=== PATIENT | female | born 1955 | race Hispanic/Latino ===

== ENCOUNTER 2017-04-12 09:15 | Outpatient (CLI) | payer OTHER ==
--- NOTE | 2017-04-12 11:22 | XRay Report ---
RIGHT FOOT, 3 views: History: Right foot pain There is normal bone mineralization. Deformity of the proximal phalanx of the right fifth toe is identified consistent with acute fracture. There is intra-articular extension at the fifth metatarsophalangeal joint. The remaining bony structures and joint spaces are within normal limits. IMPRESSION: Traumatic fracture, proximal phalanx, fifth toe.
--- NOTE | 2017-04-12 13:15 | Mammography Report ---
BONE DENSITY STUDY: Postmenopausal osteoporosis. DEFINITIONS: BMD = Bone Mineral Density T-score = BMD related to mean peak bone mass of young adult (mean expressed in Standard Deviation) Z-score = Age matched BMD expressed in SD World Health Organization (WHO) Diagnostic Criteria Normal T-score > -1 SD Osteopenia T-score between -1 and -2.4 SD Osteoporosis T-score -2.5 SD or below FINDINGS: The weighted average BMD of lumbar spine L1-L4 is 0.985 with a T-score of -0.6. The weighted average BMD of the left hip is 0.807 with a T-score of -1.1. IMPRESSION: The patient's average T-score is diagnostic for osteopenia and average relative risk for fracture. NOTE: BMD is not the only risk factor for fracture; also consider factors such as the patient's age, risk of falling, previous osteoporotic fracture, family history of osteoporotic fractures, current smoker, and low body weight. Soto's triangle is a region of interest in femur, predominantly of trabecular bone. It is not a true anatomic site, and [facility] does not recommend its use clinically.
--- NOTE | 2017-04-12 13:17 | Mammography Report ---
BILATERAL MAMMOGRAM: FINDINGS: The breast tissue is heterogeneously dense, which could obscure detection of small masses (approximately 50%-75% glandular). No mass, distortion, suspicious calcification, or skin change is seen. CAD was utilized. IMPRESSION: Negative mammogram. There is no mammographic evidence of malignancy. RECOMMENDATION: Follow-up per ACS guidelines. BI-RADS CATEGORY: 1 = Negative ACR BI-RADS MAMMOGRAPHIC CODES: 0 = Needs additional imaging evaluation; 1 = Negative; 2 = Benign; 3 = Probably benign; 4 = Suspicious; 5 = Malignant; 6 = Known biopsy-proven malignancy COMMENT: 1. Dense breast tissue, i.e., adenosis, fibrocystic changes, etc., may obscure an underlying neoplasm. 2. Approximately 10% of cancers are not detected with mammography. 3. A negative mammography report should not delay biopsy if a clinically suspicious mass is present. COMMENT: Patient follow-up letters are generated in [employer].
== END 2017-04-12 09:16 | disposition home or self-care (01) ==
LOC: SPVWC 09:15
PROVIDERS: ATTEND Internal Medicine
DX: Z12.31 Encounter for screening mammogram for malignant neoplasm of breast (principal); M85.88 Other specified disorders of bone density and structure, other site; S92.511A Displaced fracture of proximal phalanx of right lesser toe(s), initial encounter for closed fracture; Z78.0 Asymptomatic menopausal state; X58.XXXA Exposure to other specified factors, initial encounter; Y93.89 Activity, other specified; Y92.89 Other specified places as the place of occurrence of the external cause; Y99.8 Other external cause status
CPT/HCPCS: 73630; 77080; G0202; 77067

== ENCOUNTER 2020-08-22 12:38 | Outpatient (CLI) | payer MEDICARE ==
--- NOTE | 2020-08-22 14:30 | XRay Report ---
CHEST 2 VIEWS INDICATION: COUGH. COMPARISON: 09/11/2015 FINDINGS: Support devices: None. Heart: Within normal limits. Lungs/pleura: No acute air space or interstitial disease. No pneumothorax. Additional findings: Mild scoliosis is unchanged. IMPRESSION: No acute findings. Signer Name: Bandar Saucedo Jr, MD Signed: 08/22/2020 2:26 PM Workstation Name: [id number]
--- NOTE | 2020-08-22 16:30 | Mammography Report ---
DEXA BONE DENSITY SCAN INDICATION: AGE RELATED OSTEOPOROSIS W/O CURRENT PATHOLOGICAL FX. COMPARISON: None available. LEFT FEMORAL NECK: Bone mineral density (BMD) is 0.650 g/cm2. T-score is -1.8 (standard deviations of Young Adult mean). Z-score is -0.2 (standard deviations of Age Matched mean). IMPRESSION: 1. WHO Classification: Osteopenia. Fracture Risk: Increased. Signer Name: Dusty Arias MD Signed: 08/22/2020 4:25 PM Workstation Name: [id number]
--- NOTE | 2020-08-23 08:34 | Mammography Report ---
DIGITAL SCREENING MAMMOGRAM WITH CAD, 08/22/2020 INDICATION: Routine screening mammography. TECHNIQUE: Digital bilateral 2D mammography was obtained in the craniocaudal and mediolateral obliq ue projections. This examination was interpreted with the benefit of Computer-Aided Detection analysi s. COMPARISON: 04/12/2017. FINDINGS: Breast Density: The breasts are heterogeneously dense, which may obscure small masses. There is no evidence of dominant mass, suspicious calcifications or architectural distortion in eithe r breast. IMPRESSION: Follow up recommendation: Routine yearly BI-RADS Category 1: Negative. A "normal" or negative report should not discourage follow up or biopsy of a clinically significant f inding. A written summary of these findings will be mailed to the patient. The patient will be entered into a mammography reporting system which will generate a reminder letter for the patient's next appointmen t at the appropriate interval. The [employer] recommends yearly mammograms starting at age 40 and continuing as l shauna as a woman is in good health. Breast MRI is recommended for women with an approximate 20-25% or greater lifetime risk of breast cancer, including women with a strong family history of breast or ova dong cancer or who have been treated for Hodgkin's disease. Signer Name: Meek Brown MD Signed: 08/23/2020 8:29 AM Workstation Name: [id number]
== END 2020-08-22 12:39 | disposition home or self-care (01) ==
LOC: SPVWC 12:38
PROVIDERS: ATTEND Internal Medicine
DX: Z12.31 Encounter for screening mammogram for malignant neoplasm of breast (principal); M81.0 Age-related osteoporosis without current pathological fracture; R05 Cough
CPT/HCPCS: 71046; 77067; 77080